=== PATIENT | male | born 1960 | race Caucasian/White ===

== ENCOUNTER 2019-10-16 07:11 | Day surgery (SDC) | payer BC ==
[~2019-10-16] VITALS: Ht 182.9 cm; Wt 109.4 kg
[2019-10-16] VITALS (14 sets, daily range): BP systolic 143–210; BP diastolic 84–112; PULSE 57–81; TEMP 97.6–98.7
[2019-10-16] MEDS ORDERED: GLUCOPHAGE500 MG/TAB PO (07:44)
[2019-10-16] MEDS ORDERED: NITROSTAT0.4 MG/TAB SL (07:45)
[2019-10-16] MEDS ORDERED: SINGULAIR 110 MG/TAB PO (07:46)
[2019-10-16] MEDS ORDERED: ZESTRIL40 MG PO (07:47)
[2019-10-16] MEDS ORDERED: PRAVACHOL 20MG20 MG PO (07:47)
[2019-10-16] MEDS ORDERED: ASPIRIN 32325 MG/TAB PO (07:48)
[2019-10-16 08:17] LABS: HEMATOCRIT 43.7 % (42.0-52.0); HEMOGLOBIN 15.1 g/dl (13.5-18.0); MEAN CELL VOLUME 83 fl (80.0-100.0); MEAN CORPUSCULAR HEMOGLOBIN 29 pg (27.0-31.0); MEAN CORPUSCULAR HGB CONC 35 g/dl (33.0-37.0); MEAN PLATELET VOLUME 10.8 fl (7.4-10.4); PLATELET COUNT 150 K/mm3 (130-400); RED BLOOD COUNT 5.24 M/mm3 (4.20-5.60); REDCELL DISTRIBUTION WIDTH-CV 12.3 % (11.5-14.5)
[2019-10-16 08:27] LABS: CREATININE, serum 0.74 (0.66-1.25); POTASSIUM 4.4 mmol/L (3.4-5.0)
[2019-10-16 08:31] LABS: PROTHROMBIN TIME 11.6 SECONDS (9.7-12.8)
[2019-10-16 08:33] LABS: PARTIAL THROMBOPLASTIN TIME 31.9 SECONDS (26.0-37.0)
--- NOTE | 2019-10-16 11:54 | NUR ---
SEE MERGE FOR MEDICATION ADMINISTRATION TIMES AND INTRA AND POST SEDATION ASSESSMENTS.
--- NOTE | 2019-10-16 13:00 | NUR ---
Patient has been admitted to room from photographic laboratory technician. TR band to right wrist 14ml of pressure. Patient is alert and oriented. Denies pain and nausea. No drainage to cath site. CMS intact to right hand. Oriented patient to room. No other changes at this time. Call light within reach.
--- NOTE | 2019-10-16 15:05 | NUR ---
Patients blood pressure was elevated. Manual BP was 210/110. Notified Dr Burns, he ordered now dose of Norvasc and ordered to start patients home medications. Patient continues to have headache. Explained it may be from his blood pressure. Patient verbalized understanding. No other changes at this time. Call light within reach.
--- NOTE | 2019-10-16 18:00 | NUR ---
Patients blood pressure has started to rise again. Notified Dr Steele that patients BP is 198/112. Hydralazine ordered and given. Will recheck BP 30mins after dose and give a repeat dose if not imporved as ordered. Patient stated having a headache, tylenol given. TR band has been removed, site is C/D/I. CMS intact to right hand. No other changes at this time. Call light within reach.
--- NOTE | 2019-10-16 18:30 | NUR ---
Second dose of hydralazine given. Patients BP continues to be up, last BP was 178/102. Patient stated he still has a headache. No other complaints of pain or nausea. He has received tylenol for the headache. No other changes at this time. Call light within reach. Will continue to monitor.
[2019-10-17] VITALS: BP 152/82; PULSE 103; TEMP 97.9
[2019-10-17 04:00] VITALS: BP 153/88; PULSE 57; TEMP 97.9
[2019-10-17 05:27] LABS: BASO # 0.1 (0.0-0.2); BASO % 0.9 % (0.0-2.0); EOS # 0.1 (0.0-0.7); EOS % 1.6 % (0-4.0); GRAN # 4.9 (1.4-6.5); HEMOGLOBIN 15.1 g/dl (13.5-18.0); LYMPH # 2.2 (1.2-3.4); LYMPH % 27.5 % (20.0-51.0); MEAN CELL VOLUME 84 fl (80.0-100.0); MEAN CORPUSCULAR HEMOGLOBIN 29 pg (27.0-31.0); MEAN CORPUSCULAR HGB CONC 34 g/dl (33.0-37.0); MEAN PLATELET VOLUME 10.9 fl (7.4-10.4); MONO # 0.7 (0.1-0.6); MONO % 8.9 % (1.7-9.3); PLATELET COUNT 165 K/mm3 (130-400); RED BLOOD COUNT 5.25 M/mm3 (4.20-5.60); REDCELL DISTRIBUTION WIDTH-CV 12.4 % (11.5-14.5)
[2019-10-17 05:38] LABS: CREATININE, serum 0.68 (0.66-1.25)
[2019-10-17 05:40] LABS: POTASSIUM 4.2 mmol/L (3.4-5.0)
[2019-10-17 08:08] VITALS: BP 153/88; PULSE 77; TEMP 97.4
--- NOTE | 2019-10-17 09:35 | NUR ---
TIFFANIE met with the patient to discuss discharge plan. The patient lives in [place] with his , Onelia (ph#[phone]). He reports independence with ADLs and does not have any DME. The patient's PCP is Dr. Lambert Gill and he receives his medications at [facility]. He reports no difficulties obtaining his meds. The patient does not have advanced directives completed, but he was interested in obtaining a form for DPOA-HC. TIFFANIE provided. The patient plans to return back home with his upon discharge. No additional needs at this time.
[2019-10-17] MEDS ORDERED: BRILINTA90 MG PO (10:32)
[2019-10-17] MEDS ORDERED: ASPIRIN E.C. 8181 MG PO (10:34)
[2019-10-17] MEDS ORDERED: NORVASC 5MG5 MG/TAB PO (10:36)
[2019-10-17] MEDS ORDERED: PRAVACHOL 40MG40 MG PO (10:38)
--- NOTE | 2019-10-17 11:05 | NUR ---
Discharged paperwork given to pt. Pharmacist in room discussing new medications with pt. Discussed discharge instructions, follow up appointments and education with pt. Answered questions to pt's satisfaction. Pt signed discharge forms and in chart. Pt discharged from [facility] and left unit at 1100 to private vehicle driven by family member.
== END 2019-10-17 11:00 | disposition home or self-care (01) ==
LOC: COL.CAR 07:11 → EU 13:18 → COL.CAR 10-17 08:30
PROVIDERS: Internal Medicine Cardiovascular Disease
DX: I25.110 Atherosclerotic heart disease of native coronary artery with unstable angina pectoris (principal); E11.9 Type 2 diabetes mellitus without complications; I10 Essential (primary) hypertension; E78.2 Mixed hyperlipidemia; I45.10 Unspecified right bundle-branch block; Z79.84 Long term (current) use of oral hypoglycemic drugs; Z79.82 Long term (current) use of aspirin; Z79.899 Other long term (current) drug therapy
CPT/HCPCS: OP; C1769; C1874; C1887; C9600; J0360; J0583; J1644; J2250; J3010

== ENCOUNTER 2021-02-09 09:59 | Day surgery (SDC) | payer BC ==
[~2021-02-09] VITALS: Ht 182.9 cm; Wt 106.1 kg
[2021-02-09] VITALS (12 sets, daily range): BP systolic 126–169; BP diastolic 76–97; PULSE 56–69; TEMP 98–98.8
[~2021-02-09 09:59] MED LIST: ASPIRIN 32325 MG/TAB PO; ASPIRIN E.C. 8181 MG PO; BRILINTA90 MG PO; GLUCOPHAGE500 MG/TAB PO; NITROSTAT0.4 MG/TAB SL; NORVASC 5MG5 MG/TAB PO; PRAVACHOL 20MG20 MG PO; PRAVACHOL 40MG40 MG PO; SINGULAIR 110 MG/TAB PO; ZESTRIL40 MG PO
[2021-02-09] MEDS ORDERED: NORVASC 5MG5 MG/TAB PO (10:11)
[2021-02-09] MEDS ORDERED: FLONASEALLERGY NS (10:12)
[2021-02-09] MEDS ORDERED: BRILINTA90 MG PO (10:12)
[2021-02-09] MEDS ORDERED: ASPIRIN E.C. 8181 MG PO (10:13)
[2021-02-09] MEDS ORDERED: XYZAL5 MG PO (10:13)
[2021-02-09] MEDS ORDERED: GLUCOPHAGE500 MG/TAB PO (10:14)
[2021-02-09] MEDS ORDERED: ZESTRIL40 MG PO (10:14)
[2021-02-09] MEDS ORDERED: SINGULAIR 110 MG/TAB PO (10:14)
[2021-02-09] MEDS ORDERED: NITROSTAT0.4 MG/TAB SL (10:15)
[2021-02-09] MEDS ORDERED: PRAVACHOL 20MG20 MG PO (10:16)
[2021-02-09] MEDS ORDERED: TRIAMCINOLONE A15 G1 TP (10:17)
[2021-02-09 10:38] LABS: HEMATOCRIT 43.2 % (42.0-52.0); HEMOGLOBIN 14.7 g/dl (13.5-18.0); MEAN CELL VOLUME 84 fl (80.0-100.0); MEAN CORPUSCULAR HEMOGLOBIN 29 pg (27.0-31.0); MEAN CORPUSCULAR HGB CONC 34 g/dl (33.0-37.0); MEAN PLATELET VOLUME 10.5 fl (7.4-10.4); PLATELET COUNT 163 K/mm3 (130-400); RED BLOOD COUNT 5.12 M/mm3 (4.20-5.60); REDCELL DISTRIBUTION WIDTH-CV 12.3 % (11.5-14.5)
[2021-02-09 10:45] LABS: INR 1.1 (0.8-3.0); PROTHROMBIN TIME 11.8 SECONDS (9.7-12.8)
[2021-02-09 10:47] LABS: CALCIUM 9.1 mg/dL (8.4-10.2); CREATININE, serum 0.8 (0.66-1.25); POTASSIUM 4.6 mmol/L (3.4-5.0)
[2021-02-09 10:48] LABS: PARTIAL THROMBOPLASTIN TIME 30.8 SECONDS (26.0-37.0)
--- NOTE | 2021-02-09 12:11 | NUR ---
SEE MERGE DOCUMENTATION FOR MEDICATION ADMINISTRATION TIMES AND INTRA/POST PROCEDURE SEDATION ASSESSMENTS. RIGHT HAND BARBEAU TEST POSITIVE.
--- NOTE | 2021-02-09 13:36 | NUR ---
Pt. came up from laboratory chemical assistant at 13:15, accompanied by his and RN Jose from laboratory chemical assistant. Pt. able to answer questions and reports mild headache. Pt. reports he did not have any caffiene today because he could only take medications prior to procedure. Pt. alert and orieted x4. VSS. Pt. oriented to room and instructed on how to use call light.
--- NOTE | 2021-02-09 14:20 | NUR ---
Pt. continuing to do well post-cat. +CSM of all extremeties. Pt. alert and calling to order lunch. Pt. voided. Needs addressed. Call light and belongings in reach.
[2021-02-09 15:21] LABS: ALBUMIN 4.6 gm/dL (3.5-5.0); BILIRUBIN,TOTAL 0.6 mg/dL (0.0-1.0); CALCIUM 9.1 mg/dL (8.4-10.2); CREATININE, serum 0.73 (0.66-1.25); POTASSIUM 4.1 mmol/L (3.4-5.0); TOTAL PROTEIN 7.6 gm/dL (6.4-8.2)
[2021-02-09 15:31] LABS: BASO # 0.1 (0.0-0.2); BASO % 1.5 % (0.0-2.0); EOS # 0.9 (0.0-0.7); EOS % 11.4 % (0-4.0); GRAN # 3.6 (1.4-6.5); GRAN % 48.9 % (42.2-75.2); HEMATOCRIT 45.5 % (42.0-52.0); HEMOGLOBIN 15.2 g/dl (13.5-18.0); LYMPH # 2.4 (1.2-3.4); LYMPH % 31.5 % (20.0-51.0); MEAN CELL VOLUME 86 fl (80.0-100.0); MEAN CORPUSCULAR HEMOGLOBIN 29 pg (27.0-31.0); MEAN CORPUSCULAR HGB CONC 33 g/dl (33.0-37.0); MEAN PLATELET VOLUME 10.9 fl (7.4-10.4); MONO # 0.5 (0.1-0.6); MONO % 6.6 % (1.7-9.3); PLATELET COUNT 173 K/mm3 (130-400); RED BLOOD COUNT 5.28 M/mm3 (4.20-5.60); REDCELL DISTRIBUTION WIDTH-CV 12.2 % (11.5-14.5)
[2021-02-09 16:22] LABS: THYROID STIMULATING HORMONE 1.57 uIU/mL (0.350-4.940)
--- NOTE | 2021-02-09 17:15 | NUR ---
Pt. doing well. +CSM of all extremeties. Pt. was able to get OOB to bathroom w/ no dizziness or lightheadedness. Steady gait. Pt. voiding adequately.
--- NOTE | 2021-02-09 18:30 | NUR ---
TR band successfully removed. No signs/symptoms of bleeding. Pt. instructed to avoid using R arm this evening to prevent issues bleeding. Strong +2 pulse to R wrist present. +CSM to all extremeties. Pt. agreeable w/ plan of care. Bandaid in place where TR Band was, site c/d/i. Pt. instructed to call if bleeding occurs. Call light in reach.
--- NOTE | 2021-02-09 22:32 | NUR ---
PT RESTING COMFORTABLY IN BED. EVENING MEDICATIONS GIVEN. PT STATES HE HAS A HEADACHE, TYLENOL GIVEN PER ORDERS. R RADIAL WRIST HAS BANDAGE COVERING CATHETERIZATION SITE, NO BLEEDING, REDNESS, OR SWELLING NOTED TO SITE. PT DENIES ANY NEEDS AT THIS TIME. WILL CONTINUE TO MONIOTR.
[2021-02-10 00:22] VITALS: BP 134/69; PULSE 59; TEMP 97.8
[2021-02-10 04:46] VITALS: BP 129/86; PULSE 57; TEMP 97.7
--- NOTE | 2021-02-10 05:26 | NUR ---
PT HAD A RESTFUL NIGHT WITH NO NEEDS. WILL CONTINUE TO MONITOR.
[2021-02-10 06:47] LABS: BASO # 0.1 (0.0-0.2); BASO % 1.2 % (0.0-2.0); EOS # 0.9 (0.0-0.7); EOS % 11.5 % (0-4.0); GRAN # 3.6 (1.4-6.5); HEMATOCRIT 41.9 % (42.0-52.0); HEMOGLOBIN 14.1 g/dl (13.5-18.0); LYMPH # 2.2 (1.2-3.4); MEAN CELL VOLUME 86 fl (80.0-100.0); MEAN CORPUSCULAR HEMOGLOBIN 29 pg (27.0-31.0); MEAN CORPUSCULAR HGB CONC 34 g/dl (33.0-37.0); MEAN PLATELET VOLUME 10.7 fl (7.4-10.4); MONO # 0.6 (0.1-0.6); PLATELET COUNT 166 K/mm3 (130-400); RED BLOOD COUNT 4.88 M/mm3 (4.20-5.60); REDCELL DISTRIBUTION WIDTH-CV 12.3 % (11.5-14.5)
[2021-02-10 06:58] LABS: CALCIUM 8.6 mg/dL (8.4-10.2); CREATININE, serum 0.8 (0.66-1.25); POTASSIUM 4.2 mmol/L (3.4-5.0)
--- NOTE | 2021-02-10 07:22 | NUR ---
Assessment completed, alert/oriented, vital signs stable, denies pain or discomfort, s/p heart cath with RCA stent placement, heart RRR/ SR on tele, right radial access site looks good/ no signs of bleeding or hematoma, radial pulses are palpable, denies any chest discomfort, denies any resp.difficulty or SOA/lungs CTA, he is up in recliner wating on breakfast, denies other needs, I anticipate discharge home today
[2021-02-10 07:59] VITALS: BP 153/88; PULSE 60; TEMP 98
[2021-02-10] MEDS ORDERED: PRAVACHOL 20MG20 MG PO (10:19)
--- NOTE | 2021-02-10 10:29 | NUR ---
Met with the patient for intake/discharge planning. He was sitting up in his chair, alert and oriented, anxious for discharge. Patient reports that he lives at home in [place] with his , Onelia Dean ([phone]). Patient reports that he believes he has a DPOA-HC completed and on file, which names his as his decision maker. The patient denies the use of any assitive devices or home medical equipement and is independent with ADLs. PCP is Dr. Alonzo Gill in [place] and preferred pharmacy is [facility] in [place]. Patient plans to return home with his and has no concerns about this stay or mediations. *DISCHARGE PLAN: HOME WITH SPOUSE SUPPORT*
--- NOTE | 2021-02-10 14:25 | NUR ---
Discussed discharge order with the patient, instructed to follow up as scheduled with Cardiology, instructed to continue all home meds/ stress importance of taking his Brillinta, IV and tele removed, patient denies other questions, CAR FERRIER escorted him out the door
== END 2021-02-10 14:26 | disposition home or self-care (01) ==
LOC: MEDICAL 09:59 → COL.CAR 09:59 → MEDICAL 13:37 → COL.CAR 02-10 14:26
PROVIDERS: Internal Medicine Cardiovascular Disease
DX: I25.110 Atherosclerotic heart disease of native coronary artery with unstable angina pectoris (principal); I10 Essential (primary) hypertension; E78.2 Mixed hyperlipidemia; E11.9 Type 2 diabetes mellitus without complications; Z95.5 Presence of coronary angioplasty implant and graft; Z79.84 Long term (current) use of oral hypoglycemic drugs; Z79.02 Long term (current) use of antithrombotics/antiplatelets; Z79.899 Other long term (current) drug therapy; Z79.82 Long term (current) use of aspirin
CPT/HCPCS: OP; C1769; C1874; C1887; C9600; J0583; J1644; J2250; J3010; Q9967